=== PATIENT | male | born 1985 | race Caucasian/White ===

== ENCOUNTER 2019-05-14 18:51 | Inpatient (IN) | payer OTHER, SELFPAY ==
[2019-05-14] MEDS ORDERED: Lorazepam 2 MG/ML VIAL ONE (18:58)
[2019-05-14 19:30] LABS: #Lymphocytes 1.3 thou/uL (1.20-3.40); #Monocytes 1.7 thou/uL (0.11-0.59); #Neutrophils 12.3 thou/uL (1.40-6.50); %Basophils 0.2 % (0.0-1.0); %Eosinophils 0.1 % (0.0-10.0); %Lymphocytes 8.4 % (21.0-51.0); %Monocytes 10.8 % (0.0-10.0); %Neutrophils 80.5 % (42.0-75.0); Hemoglobin 16.6 g/dL (14.0-18.0); Mean Corpuscular HGB CONC 35.3 g/dL (32.0-36.0); Mean Corpuscular Hemoglobin 31.9 pg (27.0-31.0); Mean Corpuscular Volume 90.3 fL (78.0-98.0); Mean Platelet Volume 7.8 fL (7.4-10.4); Platelet Count 177 thou/uL (130-400); RBC Distribution Width 12.8 % (11.5-14.5); Red Blood Cell (RBC) Count 5.19 mill/uL (4.70-6.10); White Blood Cell (WBC) Count 15.3 thou/uL (4.8-10.8)
[2019-05-14 19:51] LABS: ALT (SGPT) 76 U/L (8-55); AST (SGOT) 41 U/L (5-34); Albumin 4.7 g/dL (3.5-5.0); Alkaline Phosphatase 63 U/L (40-110); Anion Gap 18 mmol/L (10-20); BUN (Urea Nitrogen) 17 mg/dL (8.9-20.6); Bilirubin, Total 1.8 mg/dL (0.2-1.2); CK (CPK) 1107 U/L (30-200); Calc. Creatinine Clearance 0 mL/min (70-130); Carbon Dioxide 23 mmol/L (22-29); Chloride 105 mmol/L (98-107); Estimated GFR-MDRD 66; Globulin 2.5 g/dL (2.4-3.5); Glucose 105 mg/dL (70-105); Potassium 4.1 mmol/L (3.5-5.1); Protein, Total 7.2 g/dL (6.0-8.3); Sodium 142 mmol/L (136-145)
--- NOTE | 2019-05-14 20:18 | CT ---
CT BRAIN WITHOUT CONTRAST: HISTORY: Rhabdomyolysis. COMPARISON: CT brain from the same day. FINDINGS: No acute hemorrhage or infarct. No midline shift or mass effect. The ventricular size and extraaxial CSF spaces are normal. The calvarium is intact. The paranasal sinuses and mastoids are clear. IMPRESSION: No acute intracranial abnormality. POS: HOME
[2019-05-14] MEDS ORDERED: Ondansetron PF 4 MG/2 ML Vial IVP PRN (23:03)
[2019-05-14] MEDS ORDERED: Sodium Chloride 0.9% 1,000 ML IV SCH (23:03)
[2019-05-14] MEDS ORDERED: HYDROcodone/Acetaminophen 5/325 mg Tablet PO PRN ×2 (23:03)
[2019-05-14] MEDS ORDERED: Ondansetron ODT 4 MG TAB SL PRN (23:03)
[2019-05-14] MEDS ORDERED: Acetaminophen 325 MG TAB PO PRN (23:03)
[2019-05-15 00:15] VITALS: BMI 33.4
[2019-05-15] MEDS ORDERED: Ondansetron PF 4 MG/2 ML Vial IVP PRN (02:31)
[2019-05-15] MEDS ORDERED: hydrALAZINE 20 MG/ML VIAL SLOW IVP PRN (02:31)
[2019-05-15] MEDS ORDERED: Ondansetron ODT 4 MG TAB PO PRN (02:31)
[2019-05-15] MEDS ORDERED: Acetaminophen 500 MG TAB PO PRN (02:31)
[2019-05-15] MEDS: Sodium Chloride 0.9% 1,000 ML IV SCH ×3 (05:25→21:23)
[2019-05-15 05:49] LABS: Band 1 % (5-11); Hemoglobin 15.1 g/dL (14.0-18.0); Lymphocytes 12 % (21-51); MDiff Complete? YES; Mean Corpuscular HGB CONC 33.4 g/dL (32.0-36.0); Mean Corpuscular Hemoglobin 30.4 pg (27.0-31.0); Mean Corpuscular Volume 90.8 fL (78.0-98.0); Mean Platelet Volume 7.7 fL (7.4-10.4); Metamyelocyte 1 % (0-0); Monocytes 3 % (0-10); Neutrophil 80 % (42-75); Platelet Count 145 thou/uL (130-400); Platelet Morphology Comment Appears Adequate; RBC Distribution Width 12.8 % (11.5-14.5); Reactive Lymphocytes 3 % (0-10); Red Blood Cell (RBC) Count 4.98 mill/uL (4.70-6.10); White Blood Cell (WBC) Count 8.9 thou/uL (4.8-10.8)
[2019-05-15 05:52] LABS: ALT (SGPT) 64 U/L (8-55); AST (SGOT) 54 U/L (5-34); Albumin 4.3 g/dL (3.5-5.0); Alkaline Phosphatase 58 U/L (40-110); Anion Gap 13 mmol/L (10-20); BUN (Urea Nitrogen) 14 mg/dL (8.9-20.6); Bilirubin, Total 2.3 mg/dL (0.2-1.2); Calc. Creatinine Clearance 150 mL/min (70-130); Calcium 8.6 mg/dL (7.8-10.44); Carbon Dioxide 23 mmol/L (22-29); Chloride 107 mmol/L (98-107); Estimated GFR-MDRD 87; Globulin 2.2 g/dL (2.4-3.5); Glucose 77 mg/dL (70-105); Potassium 3.7 mmol/L (3.5-5.1); Protein, Total 6.5 g/dL (6.0-8.3); Sodium 139 mmol/L (136-145)
--- NOTE | 2019-05-15 07:39 | HP ---
PRIMARY CARE PROVIDER: [facility]. CHIEF COMPLAINT: Altered mental status. HISTORY OF PRESENT ILLNESS: This is a 34-year-old male, who presented to [facility] Emergency Department and transported by EMS personnel after patient initially was evaluated at [place] [facility] for altered mental status. The history is obtained after review of electronic medical record in the emergency department as patient is unable to provide any coherent history. The patient was apparently found running down the street, combative and uncooperative. The patient apparently fled the ambulance once arriving at the Facility in [place]. The patient was disoriented, combative requiring, intravenous normal saline. The patient also received IV Versed and ketamine prior to arrival in the emergency room. No specific documented history of oral or inhaled ingestion of chemicals or exposure history. No family members with similar symptoms. Urine drug screen was performed initially and interpreted as negative. PAST MEDICAL HISTORY: Hypertension, untreated. PAST SURGICAL HISTORY: Reviewed and negative. CURRENT MEDICATIONS: Reviewed and negative. ALLERGIES: NO KNOWN DRUG ALLERGIES. FAMILY HISTORY: No inheritable diseases per report. SOCIAL HISTORY: Resides in [place], [place]. 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 No alcohol, tobacco, or illicit drug use. REVIEW OF SYSTEMS: CONSTITUTIONAL: Negative for weight loss or gain, ability to conduct usual activities. SKIN: Negative for rash, itching. EYES: Negative for double vision, pain. ENT/MOUTH: Negative for nose bleeding, neck stiffness, pain, tenderness. CARDIOVASCULAR: Negative for palpitations, dyspnea on exertion, orthopnea. RESPIRATORY: Negative for shortness of breath, wheezing, cough, hemoptysis, fever or night sweats. GASTROINTESTINAL: Negative for poor appetite, abdominal pain, heartburn, nausea, vomiting, constipation, or diarrhea. GENITOURINARY: Negative for urgency, frequency, dysuria, nocturia. MUSCULOSKELETAL: Negative for pain, swelling. NEUROLOGIC/PSYCHIATRIC: Negative for anxiety, depression. ALLERGY/IMMUNOLOGIC: Negative for skin rash, bleeding tendency. Otherwise negative except as stated per HPI. PHYSICAL EXAMINATION: VITAL SIGNS: On admission, blood pressure 153/91, pulse 136, respiratory rate 31, temperature 99 degrees Fahrenheit, O2 saturation 97% on room air. GENERAL APPEARANCE: This is a 34-year-old male, lethargic, in no acute distress. HEENT: Pupils are equal, round, reactive to light and accommodation. Extraocular muscles are intact. No scleral icterus. Mild conjunctival injection. Nares patent. OP is clear. Oral mucosa dry appearing. NECK: Supple. No cervical adenopathy. No thyromegaly. No carotid bruits. No JVD appreciated. Cervical spine with full active and passive range of motion. No meningeal signs noted. CHEST: Lungs are clear to auscultation bilaterally. CARDIOVASCULAR: S1, S2 without noted murmur, rub, or gallop. ABDOMEN: Rounded, soft, nontender, and nondistended. Bowel sounds are positive in all four all 4 quadrants. There is no hepatosplenomegaly. No abdominal bruits, no rebound or guarding appreciated. EXTREMITIES: Warm and dry with fair turgor. No clubbing, cyanosis, or asymmetric edema appreciated. Pulses are palpable distally at the dorsalis pedis, posterior tibial, and popliteal arteries bilaterally. Capillary refill less than 2 seconds. NEUROLOGIC: Sedate. No focal deficits appreciated. Alert and oriented to person. PERTINENT LABORATORY AND X-RAY FINDINGS: Sodium 142, potassium 4.1, chloride 105, CO2 23, BUN 17, creatinine 1.27, estimated GFR of 66, glucose 105, calcium 9.0, total bilirubin 1.8, AST 41, ALT of 76, alkaline phosphatase 63, total CK 1107, albumin 4.7. CBC showed a white blood cell count of 15.3, hemoglobin 16.6, hematocrit 47, platelet count 177 with 81% neutrophils. IMAGING: CT of the brain without contrast dated 05/14/2019, showed no acute intracranial process. EKG dated 05/14/2019, by my interpretation shows sinus tachycardia with heart rates in the 120s. Normal R-wave progression noted in the precordial leads. Left axis deviation noted. No acute ST-T wave changes appreciated. ASSESSMENT/PLAN: 1. Acute toxic metabolic encephalopathy. The patient will be placed on the medical floor. Avoid psychotropic medications and sedation. Drug holiday to ascertain baseline mental status function. 2. Transaminitis. Multifactorial process. Repeat liver function tests in the a.m. Consider hepatitis A, B and C screening. 3. Rhabdomyolysis. We will continue intravenous normal saline at 125 mL/hour. Underlying etiology unclear. 4. Hypertension. Serial blood pressure monitoring. Hydralazine 10 mg IV p.r.n. 5. Prophylaxis. Sequential compression devices while in bed. Pepcid 20 mg p.o. b.i.d. CODE STATUS: Full. Surrogate medical decision maker is patient's mother. Job ID: [id number]
[2019-05-15] MEDS: Famotidine 20 MG TAB PO SCH ×2 (08:28→20:36)
[2019-05-15] MEDS ORDERED: Haloperidol Lactate 5 MG/ML VIAL IM PRN (11:35)
[2019-05-15] MEDS ORDERED: Haloperidol Lactate 5 MG/ML VIAL ONE (11:37)
--- NOTE | 2019-05-15 11:40 | PDOC.EVN ---
Event Note - Event Note Event Note: 11:15 AM. Pt running on [address], agitated. Confused, does not recall what happened. Oriented to person and place. Says he is waiting to be picked up. Agitated, then calms down, then agitated again. Pt acting irrationally. Unsafe to go home or be discharged. Security on scene.
[2019-05-15] MEDS: cloNIDine 0.1 MG TAB PO PRN (20:35)
[2019-05-15] MEDS: Melatonin 3 MG TAB PO PRN (20:37)
[2019-05-15] MEDS ORDERED: Morphine 2 MG/ML SYRINGE SLOW IVP SCH (20:45)
[2019-05-16] MEDS: Sodium Chloride 0.9% 1,000 ML IV SCH ×3 (05:08→20:31)
[2019-05-16 06:51] LABS: #Eosinphils 0.1 thou/uL (0.0-0.7); #Lymphocytes 1.4 thou/uL (1.20-3.40); #Monocytes 0.5 thou/uL (0.11-0.59); #Neutrophils 3.6 thou/uL (1.40-6.50); %Basophils 0.2 % (0.0-1.0); %Eosinophils 1.3 % (0.0-10.0); %Lymphocytes 24.2 % (21.0-51.0); %Monocytes 9.1 % (0.0-10.0); %Neutrophils 65.1 % (42.0-75.0); Hemoglobin 15.8 g/dL (14.0-18.0); Mean Corpuscular HGB CONC 35.8 g/dL (32.0-36.0); Mean Corpuscular Hemoglobin 32.3 pg (27.0-31.0); Mean Corpuscular Volume 90.3 fL (78.0-98.0); Mean Platelet Volume 7.5 fL (7.4-10.4); Platelet Count 138 thou/uL (130-400); RBC Distribution Width 12.4 % (11.5-14.5); Red Blood Cell (RBC) Count 4.88 mill/uL (4.70-6.10); White Blood Cell (WBC) Count 5.6 thou/uL (4.8-10.8)
[2019-05-16 07:13] LABS: Anion Gap 13 mmol/L (10-20); BUN (Urea Nitrogen) 11 mg/dL (8.9-20.6); CK (CPK) 2155 U/L (30-200); Calc. Creatinine Clearance 124 mL/min (70-130); Calcium 9.1 mg/dL (7.8-10.44); Carbon Dioxide 27 mmol/L (22-29); Chloride 103 mmol/L (98-107); Estimated GFR-MDRD 69; Glucose 90 mg/dL (70-105); Potassium 3.7 mmol/L (3.5-5.1); Sodium 139 mmol/L (136-145)
[2019-05-16] MEDS: cloNIDine 0.1 MG TAB PO PRN (08:28)
[2019-05-16] MEDS: Famotidine 20 MG TAB PO SCH ×2 (10:34→20:30)
[2019-05-16] MEDS ORDERED: Metoprolol Tartrate 50 MG TAB PO SCH (12:00)
[2019-05-16] MEDS ORDERED: Ketorolac Tromethamine 30 MG/ML VIAL ONE (12:30)
--- NOTE | 2019-05-16 14:38 | PDOC.HOSPP ---
- Subjective Encounter Date: 05/16/19 Encounter Time: 09:00 Subjective: Pt seen for followup re; rhabdomyolysis. Feels well, no complaints. - Objective Vital Signs & Weight: Vital Signs (12 hours) Temp Pulse Resp BP BP Pulse Ox 05/16/19 08:28 161/113 H 05/16/19 08:00 99 05/16/19 07:19 98.4 F 104 H 22 H 160/117 H 99 05/16/19 05:11 99.4 F 102 H 18 125/88 99 Weight Weight 220 lb I&O: 05/15/19 05/16/19 05/17/19 06:59 06:59 06:59 Intake Total 1700 2720 240 Output Total 2100 3600 Balance -400 -880 240 Result Diagrams: 05/16/19 06:09 05/16/19 06:09 Additional Labs: Labs and MARs reviewed by mo Hospitalist ROS - Review of Systems Respiratory: denies: cough, shortness of breath, SOB with excertion, pleuritic pain, wheezing Cardiovascular: denies: chest pain, palpitations, orthopnea, paroxysmal noc. dyspnea, edema, light headedness - Medication Medications: Active Medications Generic Name Dose Route Start Last Admin Trade Name Freq PRN Reason Stop Dose Admin Clonidine 0.1 mg 05/15/19 02:31 05/16/19 08:28 Catapres PO 0.1 mg Q4H PRN Administration SBP Greater Than 170 Famotidine 20 mg 05/15/19 09:00 05/16/19 10:34 Pepcid PO 20 mg BID SAMMY Administration Hydralazine HCl 10 mg 05/15/19 02:31 05/15/19 08:29 Apresoline SLOW IVP 10 mg Q4H PRN Administration SBP > 180 and HR < 70 Sodium Chloride 1,000 mls @ 125 mls/hr 05/15/19 02:31 05/16/19 10:34 Normal Saline 0.9% IV 1,000 mls .Q8H SAMMY Administration Melatonin 3 mg 05/15/19 15:57 05/15/19 20:37 Melatonin PO 3 mg HS PRN Administration Insomnia - Exam General - other findings: Obese Eye: anicteric sclera ENT: moist mucosa Neck: supple Heart: RRR, no rubs Respiratory: CTAB Gastrointestinal: soft, non-tender Extremities: no edema Neurological: no weakness, no focal deficits Musculoskeletal: no muscle wasting Psychiatric: normal affect, normal behavior, A&O x 3 Hosp A/P (1) Rhabdomyolysis Code(s): M62.82 - RHABDOMYOLYSIS Status: Acute (2) Acute metabolic encephalopathy Code(s): G93.41 - METABOLIC ENCEPHALOPATHY Status: Acute - Plan CK improving, continue IV fluids. Encephalopathy improving. Start metoprolol for high blood pressure and tachycardia.
[2019-05-16] MEDS: Metoprolol Tartrate 25 MG TAB PO SCH (20:29)
[2019-05-16] MEDS: Melatonin 3 MG TAB PO PRN (20:34)
[2019-05-17] MEDS: Sodium Chloride 0.9% 1,000 ML IV SCH ×3 (05:19→22:00)
[2019-05-17 06:12] LABS: #Eosinphils 0.1 thou/uL (0.0-0.7); #Lymphocytes 1.2 thou/uL (1.20-3.40); #Monocytes 0.4 thou/uL (0.11-0.59); #Neutrophils 3.1 thou/uL (1.40-6.50); %Basophils 0.9 % (0.0-1.0); %Eosinophils 1.7 % (0.0-10.0); %Lymphocytes 25.1 % (21.0-51.0); %Monocytes 8.7 % (0.0-10.0); %Neutrophils 63.6 % (42.0-75.0); Hemoglobin 15.4 g/dL (14.0-18.0); Mean Corpuscular HGB CONC 34.5 g/dL (32.0-36.0); Mean Corpuscular Volume 89.7 fL (78.0-98.0); Platelet Count 142 thou/uL (130-400); RBC Distribution Width 12.4 % (11.5-14.5); Red Blood Cell (RBC) Count 4.96 mill/uL (4.70-6.10); White Blood Cell (WBC) Count 4.9 thou/uL (4.8-10.8)
[2019-05-17 06:36] LABS: Anion Gap 13 mmol/L (10-20); BUN (Urea Nitrogen) 10 mg/dL (8.9-20.6); CK (CPK) 1161 U/L (30-200); Calc. Creatinine Clearance 147 mL/min (70-130); Calcium 8.9 mg/dL (7.8-10.44); Carbon Dioxide 25 mmol/L (22-29); Chloride 103 mmol/L (98-107); Estimated GFR-MDRD 85; Glucose 78 mg/dL (70-105); Potassium 3.5 mmol/L (3.5-5.1); Sodium 137 mmol/L (136-145)
--- NOTE | 2019-05-17 07:18 | EKG ---
Test Reason : Blood Pressure : / mmHG Vent. Rate : 109 BPM Atrial Rate : 109 BPM P-R Int : 132 ms QRS Dur : 080 ms QT Int : 322 ms P-R-T Axes : 042 -76 027 degrees QTc Int : 433 ms Sinus tachycardia Left anterior fascicular block Early repolarization Abnormal ECG When compared with ECG of 14-MAY-2019 19:12, (Unconfirmed) No significant change was found Confirmed by DR. Warren URRUTIA ([id number]) on 05/17/2019 7:18:28 AM Referred By: AUGUSTA Confirmed By:DR. Warren URRUTIA
[2019-05-17] MEDS: Famotidine 20 MG TAB PO SCH ×2 (08:49→22:01)
[2019-05-17] MEDS: Metoprolol Tartrate 25 MG TAB PO SCH ×2 (08:49→22:00)
--- NOTE | 2019-05-17 14:31 | PDOC.HOSPP ---
- Subjective Encounter Date: 05/17/19 Encounter Time: 09:00 Subjective: Pt seen for followup re: rhabdomyolysis. Feels better. Denies chest pain or shortness of breath. - Objective Vital Signs & Weight: Vital Signs (12 hours) Temp Pulse Resp BP BP Pulse Ox 05/17/19 08:00 97.8 F 86 20 147/109 H 96 05/17/19 04:00 97.5 F L 90 20 136/92 H 96 Weight Weight 220 lb I&O: 05/16/19 05/17/19 05/18/19 06:59 06:59 06:59 Intake Total 2720 720 Output Total 3600 Balance -880 720 Result Diagrams: 05/17/19 05:49 05/17/19 05:49 Additional Labs: Labs and MARs reviewed by ct Hospitalist ROS - Review of Systems Cardiovascular: reports: other. denies: chest pain, palpitations, orthopnea, paroxysmal noc. dyspnea, edema, light headedness Gastrointestinal: denies: nausea, vomiting, abdominal pain, diarrhea, constipation, melena, hematochezia - Medication Medications: Active Medications Generic Name Dose Route Start Last Admin Trade Name Freq PRN Reason Stop Dose Admin Clonidine 0.1 mg 05/15/19 02:31 05/16/19 08:28 Catapres PO 0.1 mg Q4H PRN Administration SBP Greater Than 170 Famotidine 20 mg 05/15/19 09:00 05/17/19 08:49 Pepcid PO 20 mg BID SAMMY Administration Hydralazine HCl 10 mg 05/15/19 02:31 05/15/19 08:29 Apresoline SLOW IVP 10 mg Q4H PRN Administration SBP > 180 and HR < 70 Sodium Chloride 1,000 mls @ 125 mls/hr 05/15/19 02:31 05/17/19 13:11 Normal Saline 0.9% IV 1,000 mls .Q8H SAMMY Administration Melatonin 3 mg 05/15/19 15:57 05/16/19 20:34 Melatonin PO 3 mg HS PRN Administration Insomnia Metoprolol Tartrate 25 mg 05/16/19 21:00 05/17/19 08:49 Lopressor PO 25 mg BID SAMMY Administration - Exam General - other findings: Obesity Eye: PERRL, anicteric sclera ENT: normocephalic atraumatic, no oropharyngeal lesions, moist mucosa Neck: supple, no JVD Heart: RRR, no rubs Respiratory: CTAB, no rales Gastrointestinal: soft, non-tender Extremities: no edema Skin: no rashes Neurological: no weakness Psychiatric: normal affect, normal behavior, A&O x 3 Hosp A/P (1) Rhabdomyolysis Code(s): M62.82 - RHABDOMYOLYSIS Status: Acute (2) Acute metabolic encephalopathy Code(s): G93.41 - METABOLIC ENCEPHALOPATHY Status: Resolved - Plan CK improving 1161 today, continue IV fluids. Encephalopathy resolved. Monitor vital signs, titrate antihypertensives as needed. Pt currently on metoprolol.
[2019-05-18 05:33] LABS: #Basophils 0.1 thou/uL (0.0-0.2); #Eosinphils 0.1 thou/uL (0.0-0.7); #Lymphocytes 1.4 thou/uL (1.20-3.40); #Monocytes 0.4 thou/uL (0.11-0.59); #Neutrophils 2.9 thou/uL (1.40-6.50); %Basophils 1.3 % (0.0-1.0); %Eosinophils 2.4 % (0.0-10.0); %Lymphocytes 29.3 % (21.0-51.0); %Monocytes 7.7 % (0.0-10.0); %Neutrophils 59.2 % (42.0-75.0); Hemoglobin 15.7 g/dL (14.0-18.0); Mean Corpuscular HGB CONC 34.1 g/dL (32.0-36.0); Mean Corpuscular Hemoglobin 30.8 pg (27.0-31.0); Mean Corpuscular Volume 90.3 fL (78.0-98.0); Platelet Count 144 thou/uL (130-400); RBC Distribution Width 12.5 % (11.5-14.5); Red Blood Cell (RBC) Count 5.12 mill/uL (4.70-6.10); White Blood Cell (WBC) Count 4.9 thou/uL (4.8-10.8)
[2019-05-18] MEDS: Sodium Chloride 0.9% 1,000 ML IV SCH (05:57)
[2019-05-18 05:59] LABS: Anion Gap 14 mmol/L (10-20); BUN (Urea Nitrogen) 11 mg/dL (8.9-20.6); CK (CPK) 562 U/L (30-200); Calc. Creatinine Clearance 131 mL/min (70-130); Calcium 8.9 mg/dL (7.8-10.44); Carbon Dioxide 24 mmol/L (22-29); Chloride 107 mmol/L (98-107); Estimated GFR-MDRD 74; Glucose 93 mg/dL (70-105); Potassium 3.7 mmol/L (3.5-5.1); Sodium 141 mmol/L (136-145)
[2019-05-18 07:56] VITALS: BP 138/95; TEMP 98.4
[2019-05-18] MEDS: Metoprolol Tartrate 25 MG TAB PO SCH (08:19)
[2019-05-18] MEDS: Famotidine 20 MG TAB PO SCH (08:19)
[2019-05-18 12:45] LABS: ALT (SGPT) 102 U/L (8-55); AST (SGOT) 61 U/L (5-34); Albumin 4.3 g/dL (3.5-5.0); Alkaline Phosphatase 61 U/L (40-110); Bilirubin, Direct 0.3 mg/dL (0.1-0.3); Protein, Total 6.6 g/dL (6.0-8.3)
--- NOTE | 2019-05-19 08:25 | DIS ---
DATE OF ADMISSION: 05/14/2019 DATE OF DISCHARGE: 05/18/2019 PRIMARY CARE PROVIDER: Unknown. DISCHARGE DIAGNOSES: 1. Rhabdomyolysis. 2. Transaminitis. 3. Hyperbilirubinemia. 4. Hypertension. 5. Acute metabolic encephalopathy. CONDITION OF PATIENT ON THE DAY OF DISCHARGE: Stable. I assessed Mr. Benitez on the day of discharge. He denies any chest pain or shortness of breath. Vital signs are stable. S1 and S2 are heard, regular. Lungs are clear to auscultation bilaterally. HOSPITAL COURSE: Mr. Benitez is a pleasant 34-year-old gentleman, who was admitted to [facility] on 05/15/2019, for acute metabolic encephalopathy and rhabdomyolysis. Please refer to Dr. Novoa's history and physical note dated 05/15/2019, for further details. He continued to be confused and acting irrationally on 05/15/2019. He was treated with intravenous fluids for rhabdomyolysis, with improvement of CK. He also had abnormal LFTs. By the day of discharge, bilirubin had normalized, AST and ALT were slightly elevated, likely secondary to rhabdomyolysis. His blood pressure was elevated during this hospitalization. He has been started on metoprolol. He has been advised to check his blood pressure and heart rate 3 times a day and show the readings to primary care provider. He has also been advised to maintain good oral intake of fluids. He is being discharged home in a stable condition. He was also evaluated by [facility], and they recommended discharge home. He has been provided resources for mental health. He was reportedly in a lot of stress at the time of admission. LABORATORY DATA: On the day of discharge, he has normal chem-7, CK 562, total bilirubin 1.0, AST 61, and ALT 102. CBC is unremarkable. DISCHARGE MEDICATIONS: Metoprolol 25 mg p.o. b.i.d. POST-DISCHARGE FOLLOWUP: The patient is advised to follow up with primary care provider in 3 to 5 days. Many thanks for allowing me to participate in your patient's care. Please feel free to contact me with any questions or concerns. DISCHARGE DESTINATION: Home. TIME SPENT: Total amount of time spent coordinating this discharge: 32 minutes. Job ID: [id number]
== END 2019-05-18 14:02 | disposition home or self-care (01) | DRG 557 ==
LOC: ERS 18:51 → ERHOLD 21:10 → T4-A 22:51
PROVIDERS: ADMIT Internal Medicine; ATTEND Internal Medicine
DX: M62.82 Rhabdomyolysis (principal); G93.41 Metabolic encephalopathy; I10 Essential (primary) hypertension
CPT/HCPCS: 36415; 70450; 80048; 80053; 80076; 82550; 85007; 85025; 85027; 93005; 93010; 96361; 96374; J0360; J1630; J1885; J2060

== ENCOUNTER 2019-06-03 21:26 | Emergency (ER) | payer SELFPAY ==
[2019-06-04 00:04] LABS: #Eosinphils 0.1 thou/uL (0.0-0.7); #Lymphocytes 1.9 thou/uL (1.20-3.40); #Monocytes 0.7 thou/uL (0.11-0.59); #Neutrophils 5.9 thou/uL (1.40-6.50); %Basophils 0.4 % (0.0-1.0); %Eosinophils 1.1 % (0.0-10.0); %Lymphocytes 21.5 % (21.0-51.0); %Monocytes 8.2 % (0.0-10.0); %Neutrophils 68.8 % (42.0-75.0); Hemoglobin 18.3 g/dL (14.0-18.0); Mean Corpuscular HGB CONC 34.8 g/dL (32.0-36.0); Mean Corpuscular Hemoglobin 31.5 pg (27.0-31.0); Mean Corpuscular Volume 90.4 fL (78.0-98.0); Mean Platelet Volume 7.1 fL (7.4-10.4); Platelet Count 236 thou/uL (130-400); RBC Distribution Width 12.5 % (11.5-14.5); Red Blood Cell (RBC) Count 5.81 mill/uL (4.70-6.10); White Blood Cell (WBC) Count 8.6 thou/uL (4.8-10.8)
[2019-06-04] MEDS ORDERED: Lorazepam 1 MG TAB ONE ×2 (00:09→02:21)
[2019-06-04 00:23] LABS: Acetaminophen Less than 6.0 mcg/mL (10.0-30.0); Alcohol Less than 10 mg/dL (Less than 10); Salicylate Less than 8.0 mg/dL (15.0-30.0)
[2019-06-04 00:25] LABS: ALT (SGPT) 134 U/L (8-55); AST (SGOT) 46 U/L (5-34); Albumin 5.1 g/dL (3.5-5.0); Alkaline Phosphatase 69 U/L (40-110); Anion Gap 13 mmol/L (10-20); BUN (Urea Nitrogen) 17 mg/dL (8.9-20.6); Bilirubin, Total 1.6 mg/dL (0.2-1.2); Calc. Creatinine Clearance 0 mL/min (70-130); Calcium 10.2 mg/dL (7.8-10.44); Carbon Dioxide 26 mmol/L (22-29); Chloride 102 mmol/L (98-107); Estimated GFR-MDRD 77; Glucose 81 mg/dL (70-105); Potassium 4.3 mmol/L (3.5-5.1); Protein, Total 8.1 g/dL (6.0-8.3); Sodium 137 mmol/L (136-145)
[2019-06-04] MEDS ORDERED: Haloperidol Lactate 5 MG/ML VIAL ONE (02:21)
[2019-06-04] MEDS ORDERED: Metoprolol Tartrate 25 MG TAB ONE (07:57)
[2019-06-04 10:43] LABS: Amphetamine Not Detected (NotDetected); Barbiturates Screen Not Detected (NotDetected); Benzodiazepine Screen Detected (NotDetected); Cocaine Metabolite Screen Not Detected (NotDetected); Medtox Control Line Valid? VALID (VALID); Medtox Reader # READER 4; Methadone Not Detected (NotDetected); Methamphetamine Not Detected (NotDetected); Opiate Screen Not Detected (NotDetected); Oxycodone Screen Not Detected (NotDetected); Phencyclidine (PCP) Not Detected (NotDetected); THC/Cannabinoid Screen Not Detected (NotDetected); Tricyclic Screen Not Detected (NotDetected)
== END 2019-06-04 17:22 ==
LOC: ERS 21:26
DX: R45.851 Suicidal ideations (principal); R44.3 Hallucinations, unspecified; I10 Essential (primary) hypertension; Z79.899 Other long term (current) drug therapy
CPT/HCPCS: 36415; 80306; 80307; 84443; 93005; 96372; J1630